=== PATIENT | female | born 1975 | race Caucasian/White ===

== ENCOUNTER → 2017-06-08 | Outpatient (CLI) | payer BC ==
[~2017-06-08] MED LIST: CLINDAMYCIN HC150 MG PO; LEVAQUIN750 MG PO; LINZESS PO; MEDROL4 MG/DOSE-; NEXIUM20 MG PO; ULTRAM50 MG PO; ZANTAC150 MG PO
[2017-06-08 11:00] LABS: BASOPHILS # (AUTO) 0.1 (0.0-0.1); BASOPHILS % 0.7 % (0.0-1.0); EOSINOPHILS # (AUTO) 0.1 (0.0-0.4); EOSINOPHILS % 1.9 % (0.0-6.0); HEMOGLOBIN 11.6 g/dL (12.0-16.0); LYMPHOCYTES # (AUTO) 1.8 (1.0-3.2); LYMPHOCYTES % 26.7 % (18.0-39.1); MEAN CORPUSCULAR HEMOGLOBIN 30.1 pg (28-32); MEAN CORPUSCULAR HGB CONC 33.1 g/dL (31-35); MEAN CORPUSCULAR VOLUME 90.9 fL (81-99); MONOCYTES # (AUTO) 0.5 (0.2-0.8); MONOCYTES % 7.3 % (4.4-11.3); NEUTROPHILS # (AUTO) 4.3 (2.1-6.9); NEUTROPHILS % 63.1 % (38.7-80.0); PLATELET COUNT 264 x10e3/uL (140-360); RED BLOOD COUNT 3.85 x10e6/uL (3.6-5.1); RED CELL DISTRIBUTION WIDTH 13.6 % (11.7-14.4)
[2017-06-08 11:22] LABS: ALANINE AMINOTRANSFERASE 31 IU/L (0-55); ALBUMIN 3.9 g/dL (3.5-5.0); ALBUMIN/GLOBULIN RATIO 1.1 (0.8-2.0); ALKALINE PHOSPHATASE 84 IU/L (40-150); ANION GAP 13.5 mmol/L (8-16); BLOOD UREA NITROGEN 11 mg/dL (7-26); BUN/CREATININE RATIO 16 (6-25); CALCIUM 9.4 mg/dL (8.4-10.2); CARBON DIOXIDE 23 mmol/L (22-29); CHLORIDE 104 mmol/L (98-107); CHOL/HDL RATIO 2.3 (3.0-3.6); CHOLESTEROL 203 MD/DL (0-199); CREATININE, SERUM 0.67 mg/dL (0.57-1.11); EST GLOMERULAR FILTRATION RATE > 60 ML/MIN (60-); GLUCOSE 91 mg/dL (74-118); HDL CHOLESTEROL 87 MG/DL (40-60); LDL CHOLESTEROL 106 MG/DL (60-130); POTASSIUM 3.5 mmol/L (3.5-5.1); SODIUM 137 mmol/L (136-145); TRIGLYCERIDES 52 MG/DL (0-149)
== END ==
LOC: LAB 09:17
PROVIDERS: ATTEND Internal Medicine
DX: R53.83 Other fatigue (principal); E55.9 Vitamin D deficiency, unspecified; E78.2 Mixed hyperlipidemia; E34.9 Endocrine disorder, unspecified; M60.9 Myositis, unspecified; R79.89 Other specified abnormal findings of blood chemistry
CPT/HCPCS: 36415; 80053; 80061; 82306; 82626; 82670; 84144; 84403; 84436; 84480; 85025

== ENCOUNTER 2017-11-24 15:13 | Emergency (ER) | payer BC ==
[~2017-11-24] VITALS: Ht 172.7 cm; Wt 93.0 kg
== END 2017-11-24 15:41 | disposition home or self-care (01) ==
LOC: ER 15:13
DX: R50.9 Fever, unspecified (principal); J02.0 Streptococcal pharyngitis; K21.9 Gastro-esophageal reflux disease without esophagitis
CPT/HCPCS: 99282

== ENCOUNTER → 2018-11-11 | Outpatient (CLI) | payer BC ==
--- NOTE | 2018-11-11 13:02 | Diagnostic Imaging Report ---
Left knee MRI without contrast. History: Knee pain. Decreased range of motion. Lateral pain. Pain worse with running Comparison: None. Technique: Multiplanar multi-sequence MRI of the knee without contrast. Findings: Medial compartment: Mid substance degeneration of the medial meniscus with mild fraying of the posterior horn. No meniscal tear is seen. The medial compartmental articular cartilage surfaces are slightly thinned with regions of fraying and fissuring. The medial collateral ligament complex is intact. Lateral compartment: No meniscal tear or cartilage abnormality. The LCL complex is normal. Intercondylar notch: The ACL and PCL are intact. Patellofemoral compartment: No chondromalacia or patellar dislocation. Extensor mechanism: The quadriceps and patellar tendons are normal. Other findings: There is a joint effusion and synovitis. There is no acute fracture, subluxation or avascular necrosis. IMPRESSION: Mid substance degeneration of the medial meniscus with mild fraying of the posterior horn. No meniscal tear is seen. 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 Signed by: Dr. Waqar Hogan M.D. on 11/11/2018 12:58 PM
== END ==
LOC: MRI 10:46
PROVIDERS: ATTEND Orthopaedic Surgery
DX: S83.282D Other tear of lateral meniscus, current injury, left knee, subsequent encounter (principal); M25.562 Pain in left knee
CPT/HCPCS: 81025

== ENCOUNTER → 2018-11-20 | Outpatient (CLI) | payer BC ==
[2018-11-20 09:10] LABS: BASOPHILS # (AUTO) 0.1 (0.0-0.1); EOSINOPHILS # (AUTO) 0.3 (0.0-0.4); HEMATOCRIT 35.1 % (34.2-44.1); HEMOGLOBIN 11.4 g/dL (12.0-16.0); LYMPHOCYTES % 32.8 % (18.0-39.1); MEAN CORPUSCULAR HEMOGLOBIN 30.1 pg (28-32); MEAN CORPUSCULAR HGB CONC 32.5 g/dL (31-35); MEAN CORPUSCULAR VOLUME 92.6 fL (81-99); MONOCYTES # (AUTO) 0.5 (0.2-0.8); MONOCYTES % 8.7 % (4.4-11.3); NEUTROPHILS # (AUTO) 3.3 (2.1-6.9); NEUTROPHILS % 53.3 % (38.7-80.0); PLATELET COUNT 268 x10e3/uL (140-360); RED BLOOD COUNT 3.79 x10e6/uL (3.6-5.1); RED CELL DISTRIBUTION WIDTH 13.1 % (11.7-14.4)
[2018-11-20 09:41] LABS: ALANINE AMINOTRANSFERASE 22 IU/L (0-55); ALBUMIN 3.6 g/dL (3.5-5.0); ALBUMIN/GLOBULIN RATIO 1.1 (0.8-2.0); ALKALINE PHOSPHATASE 81 IU/L (40-150); ANION GAP 12.1 mmol/L (8-16); BLOOD UREA NITROGEN 14 mg/dL (7-26); BUN/CREATININE RATIO 18 (6-25); CALCIUM 9.4 mg/dL (8.4-10.2); CARBON DIOXIDE 23 mmol/L (22-29); CHLORIDE 106 mmol/L (98-107); CHOL/HDL RATIO 2.9 (3.0-3.6); CHOLESTEROL 215 MD/DL (0-199); CREATININE, SERUM 0.78 mg/dL (0.57-1.11); EST GLOMERULAR FILTRATION RATE > 60 ML/MIN (60-); GLUCOSE 91 mg/dL (74-118); HDL CHOLESTEROL 73 MG/DL (40-60); LDL CHOLESTEROL 128 MG/DL (60-130); POTASSIUM 4.1 mmol/L (3.5-5.1); SODIUM 137 mmol/L (136-145); TRIGLYCERIDES 71 MG/DL (0-149)
== END ==
LOC: LAB 08:46
PROVIDERS: ATTEND Internal Medicine
DX: Z00.00 Encounter for general adult medical examination without abnormal findings (principal); R53.83 Other fatigue; E78.2 Mixed hyperlipidemia
CPT/HCPCS: 36415; 80053; 80061; 83036; 84436; 84479; 85025

== ENCOUNTER 2019-01-01 13:17 | Outpatient (RCR) | payer BC | END 2019-01-02 | LOC: PT 13:17 | PROVIDERS: ATTEND Orthopaedic Surgery | DX: M25.562 Pain in left knee (principal); M94.262 Chondromalacia, left knee; R26.2 Difficulty in walking, not elsewhere classified; M62.81 Muscle weakness (generalized) ==

== ENCOUNTER 2019-01-23 13:55 | Outpatient (RCR) | payer BC | END 2019-02-01 | LOC: PT 13:55 | PROVIDERS: ATTEND Orthopaedic Surgery | DX: M25.562 Pain in left knee (principal); R26.2 Difficulty in walking, not elsewhere classified; M62.81 Muscle weakness (generalized) ==

== ENCOUNTER 2019-02-08 13:40 | Emergency (ER) | payer BC ==
[~2019-02-08] VITALS: Ht 172.7 cm; Wt 93.0 kg
--- OUTSIDE RECORDS SUMMARY | 2019-02-08 13:42 | XMS REPORT ---
Author [facility] Address Unknown Phone Unavailable Care Team Providers Care Emergency Room Physician Name Role Phone Sanket HERBERT Unavailable Unavailable Problems This patient has no known problems. Allergies, Adverse Reactions, Alerts This patient has no known allergies or adverse reactions. Medications This patient has no known medications. Results Test Description Test Time Test Comments Text Results Atomic Results Result Comments MRI KNEE LEFT WO 2018-11-11 12:55:00 [place] [address] Patient Name: ALEX VEGA MR #: [id number] : 1975 Age/Sex: 43/F Req #: [id number] [facility] Physician: Ordered by: SANJUANA HERBERT DO Report #: [id number] Location: MRI Room/Bed: Procedure: MRI/MRI KNEE LEFT WO Exam Date: Exam Time: REPORT STATUS: Signed Left knee MRI without contrast. History: Knee pain. Decreased range of motion. Lateral pain. Pain worse with running Comparison: None. Technique: Multiplanar multi-sequence MRI of the knee without contrast. Findings: Medial compartment: Mid substance degeneration of the medial meniscus with mild fraying of the posterior horn. No meniscal tear is seen. The medial compartmental articular cartilage surfaces are slightly thinned with regions of fraying and fissuring. The medial collateral ligament complex is intact. Lateral compartment: No meniscal tear or cartilage abnormality. The LCL complex is normal. Intercondylar notch: The ACL and PCL are intact. Patellofemoral compartment: No chondromalacia or patellar dislocation. Extensor mechanism: The quadriceps and patellar tendons are normal. Other findings: There is a joint effusion and synovitis. There is no acute fracture, subluxation or avascular necrosis. IMPRESSION: Mid substance degeneration of the medial meniscus with mild fraying of the posterior horn. No meniscal tear is seen. 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 Signed by: Dr. Waqar Hogan M.D. on 11/11/2018 12:58 PM Dictated By: WAQAR HOGAN MD, MD [id number] Transcribed By: JD on 11/11/18 1258 COPY TO: SANJUANA HERBERT DO
[2019-02-08] MEDS ORDERED: KETOROLAC TROMETHAMINE 30 MG/ML VIAL IV ONE (14:00)
[2019-02-08 14:03] LABS: BASOPHILS % 0.5 % (0.0-1.0); EOSINOPHILS # (AUTO) 0.3 (0.0-0.4); HEMATOCRIT 33.8 % (34.2-44.1); HEMOGLOBIN 11.1 g/dL (12.0-16.0); LYMPHOCYTES # (AUTO) 2.5 (1.0-3.2); LYMPHOCYTES % 29.1 % (18.0-39.1); MEAN CORPUSCULAR HEMOGLOBIN 30.2 pg (28-32); MEAN CORPUSCULAR HGB CONC 32.8 g/dL (31-35); MEAN CORPUSCULAR VOLUME 92.1 fL (81-99); MONOCYTES # (AUTO) 0.8 (0.2-0.8); MONOCYTES % 9.5 % (4.4-11.3); NEUTROPHILS # (AUTO) 4.9 (2.1-6.9); NEUTROPHILS % 57.7 % (38.7-80.0); PLATELET COUNT 304 x10e3/uL (140-360); RED BLOOD COUNT 3.67 x10e6/uL (3.6-5.1); RED CELL DISTRIBUTION WIDTH 13.3 % (11.7-14.4)
[2019-02-08 14:13] LABS: CLARITY,URINE HAZY (CLEAR); COLOR,URINE YELLOW (YELLOW); LEUKOCYTE ESTERASE ,URINE NEGATIVE (NEGATIVE); NITRITE,URINE NEGATIVE (NEGATIVE)
[2019-02-08 14:14] LABS: INR 0.85; PROTHROMBIN TIME 12.1 seconds (11.9-14.5)
[2019-02-08 14:14] LABS: BILIRUBIN,URINE NEGATIVE (NEGATIVE); KETONES,URINE NEGATIVE (NEGATIVE); PROTEIN,URINE DIPSTICK TRACE (NEGATIVE); URINE UROBILINOGEN 0.2 mg/dL (0.2 - 1)
[2019-02-08 14:15] LABS: PARTIAL THROMBOPLASTIN TIME 25.8 seconds (23.8-35.5)
[2019-02-08 14:22] LABS: BACTERIA,URINE MODERATE /HPF; EPITHELIAL CELLS,URINE MODERATE /LPF
[2019-02-08 14:25] LABS: ALANINE AMINOTRANSFERASE 65 IU/L (0-55); ALBUMIN 3.6 g/dL (3.5-5.0); ALBUMIN/GLOBULIN RATIO 1.2 (0.8-2.0); ALKALINE PHOSPHATASE 93 IU/L (40-150); ANION GAP 12.3 mmol/L (8-16); BLOOD UREA NITROGEN 9 mg/dL (7-26); BUN/CREATININE RATIO 15 (6-25); CALCIUM 9.2 mg/dL (8.4-10.2); CARBON DIOXIDE 23 mmol/L (22-29); CHLORIDE 106 mmol/L (98-107); CREATINE KINASE 45 IU/L (29-168); CREATININE, SERUM 0.61 mg/dL (0.57-1.11); EST GLOMERULAR FILTRATION RATE > 60 ML/MIN (60-); GLUCOSE 94 mg/dL (74-118); LIPASE 73 U/L (8-78); MAGNESIUM 1.9 MG/DL (1.3-2.1); POTASSIUM 3.3 mmol/L (3.5-5.1); SODIUM 138 mmol/L (136-145)
[2019-02-08] MEDS ORDERED: DIAZEPAM INJ 5 MG/ML 2 ML IV ONE (14:30)
--- NOTE | 2019-02-08 14:41 | Diagnostic Imaging Report ---
EXAMINATION: CHEST 2 VIEWS INDICATION: Right chest wall pain. COMPARISON: None FINDINGS: TUBES and LINES: None. LUNGS: Lungs are not well inflated. There is no evidence of pneumonia or pulmonary edema. PLEURA: No pleural effusion or pneumothorax. HEART AND MEDIASTINUM: The cardiomediastinal silhouette is unremarkable. BONES AND SOFT TISSUES: No acute osseous lesion. Soft tissues are unremarkable. UPPER ABDOMEN: No free air under the diaphragm. IMPRESSION: No acute radiographic abnormality. Signed by: Dr. Nikolai Marina MD on 02/08/2019 2:38 PM
[2019-02-08] MEDS ORDERED: SODIUM CHLORIDE 0.9% 1000ML 1,000 ML IV SCH (15:00)
[2019-02-08 16:32] VITALS: BP 138/67
--- NOTE | 2019-02-08 17:00 | Diagnostic Imaging Report ---
EXAM: CT Chest WITH contrast- Pulmonary Embolism Protocol INDICATION: Chest pain, query pulmonary embolism. COMPARISON: Chest radiograph 02/08/2019. TECHNIQUE: Chest was scanned utilizing a multidetector helical scanner from the lung apex through the level of the diaphragm after administration of IV contrast. Thin section reconstructions were obtained with special concentration on the pulmonary arteries. Coronal and sagittal reformations were obtained. Pulmonary embolism protocol was performed. IV CONTRAST: 100 cc of Isovue 370 RADIATION DOSE: Total DLP: 598.2 mGy*cm Dose modulation, iterative reconstruction, and/or weight based adjustment of the mA/kV was utilized to reduce the radiation dose to as low as reasonably achievable. COMPLICATIONS: None FINDINGS: LINES/ TUBES: None. PULMONARY ARTERIES: No filling defect is identified within the pulmonary arteries to the segmental level. The subsegmental pulmonary arteries are not well opacified. Main pulmonary artery measures 2.2 cm in diameter. LUNGS AND AIRWAYS: The central airways are patent. No evidence of pneumonia or pulmonary edema. Minimal dependent atelectasis. There is a 4 mm solid nodule in the left lower lobe on series 3, image 76. PLEURA: The pleural spaces are clear. HEART AND MEDIASTINUM: The thyroid gland is normal. No mediastinal, hilar or axillary lymphadenopathy. The heart is normal in size.. There is no pericardial effusion. UPPER ABDOMEN: Limited contrast-enhanced views of the upper abdomen are unremarkable. BONES: The visualized bony thorax is within normal limits. SOFT TISSUES: Unremarkable. IMPRESSION: No evidence of pulmonary embolism to the level of the segmental pulmonary arteries. A 4 mm solid nodule in the left lower lobe is likely benign, and does not require follow-up in the absence of risk factor for malignancy. If the patient has a high risk for malignancy, an optional follow-up chest CT in 12 months may be considered. Signed by: Dr. Nikolai Marina MD on 02/08/2019 4:57 PM
[2019-02-08] MEDS ORDERED: IOPAMIDOL 370 MG/ML 200 ML INFUS..BTL INJ ONE (18:33)
[2019-02-08] MEDS ORDERED: SODIUM CHLORIDE 0.9% 50ML 50 ML ONE (18:33)
== END 2019-02-08 16:35 | disposition home or self-care (01) ==
LOC: ER 13:40
DX: S39.012A Strain of muscle, fascia and tendon of lower back, initial encounter (principal); M54.6 Pain in thoracic spine; R07.89 Other chest pain; K21.9 Gastro-esophageal reflux disease without esophagitis
CPT/HCPCS: 36415; 71046; 71260; 80053; 81001; 81025; 82550; 82553; 83690; 83735; 84484; 85025; 85379; 85610; 85730; 93005; 99284; J1885; J3360; J7030; Q9967

== ENCOUNTER 2019-11-23 19:18 | Emergency (ER) | payer BC ==
[~2019-11-23] VITALS: Ht 172.7 cm; Wt 93.0 kg
[2019-11-23] MEDS ORDERED: DIPHENHYDRAMINE HCL INJ 50 MG/ML VIAL IV ONE (19:45)
[2019-11-23] MEDS ORDERED: METOCLOPRAMIDE HCL 10 MG/2ML VIAL IV ONE (19:45)
[2019-11-23] MEDS ORDERED: METOCLOPRAMIDE HCL 10 MG/2ML VIAL ONE (19:53)
[2019-11-23] MEDS ORDERED: DIPHENHYDRAMINE HCL INJ 50 MG/ML VIAL ONE (19:53)
[2019-11-23] MEDS ORDERED: SODIUM CHLORIDE 0.9% 250ML 250 ML ONE (19:54)
--- NOTE | 2019-11-23 21:02 | Emergency Department Note ---
History of Present Illnes History of Present Illness Chief Complaint: Headache History of Present Illness This is a 44 year old female with hx of migraines who presents with headache X3 days. Initially abated on first day with sumatriptan, but JORDAN returned the next day and was out of sumatriptan rx. Has been taking OTC NSAIDs, Caffiene, APAP with no relief. Had Sumatriptan refilled today, but did not help. States similar symptoms in past from migraines associated with menstrual period. Started menstrual period 2 days ago. First migraine 8 years ago. Denies numbness, weakness, tingling, slurred speech, vision problems, dizziness, balance problems. JORDAN global. Severe on right frontal, and mild every where else. + photophobia/photophobia. No aura. Historian: Patient Arrival Mode: Car Customer Services Coordinator Required: No Onset (how long ago): day(s) Radiation: Reports non-radiation Severity: severe Onset quality: sudden Duration (how long): day(s) Timing of current episode: constant Progression: waxing and waning Chronicity: chronic (Intermittant) Context: Denies recent immobilization, Denies recent travel, Denies trauma/injury Relieving factors: other (dark room) Exacerbating factors: other (bright light) Treatments prior to arrival: NSAID, other (above) Past Medical/Family History Physician Review I have reviewed the patient's past medical and family history. Any updates have been documented here. Past Medical History Recent Fever: No Clinical Suspicion of Infectio: No New/Unexplained Change in Ment: No Past Medical History: GERD Other Medical History: MIRAINES Past Surgical History: Tubal Ligation Other Surgery: DETACHED RETINA Social History Smoking Cessation: Never Smoker Counseling Performed: No Alcohol Use: None Any Illegal Drug Use: No Physically hurt or threatened: No Other Last Tetanus: UTD Any Pre-Existing Lines (PICC,: No Review of Systems Review of Systems Constitutional: Reports no symptoms; Denies chills, Denies fever EENTM: Denies double vision Cardiovascular: Denies chest pain, Denies palpitations Respiratory: Denies cough, Denies dyspnea Gastrointestinal: Reports vomiting; Denies abdominal pain, Denies constipation, Denies nausea Genitourinary: Denies dysuria, Denies hematuria Musculoskeletal: Denies back pain, Denies muscle pain, Denies muscle stiffness Integumentary: Denies rash Neurological: Reports headache; Denies numbness, Denies paresthesia, Denies seizure, Denies tingling, Denies tremors, Denies weakness Psychological: Denies anxiety Hematological/Lymphatic: Denies swollen glands Physical Exam Related Data Allergies: Coded Allergies: Penicillins (Verified Allergy, Unknown, 01/23/16) amitriptyline (Verified Allergy, Unknown, 01/23/16) cephalexin (Verified Allergy, Unknown, 01/23/16) erythromycin base (Verified Allergy, Unknown, 01/23/16) Triage Vital Signs Vital Signs Date Time Temp Pulse Resp B/P (MAP) Pulse Ox O2 Delivery O2 Flow Rate FiO2 11/23/19 19:25 97.9 83 18 147/92 100 Room Air Physical Exam CONSTITUTIONAL Constitutional: Present well-developed, Present well-nourished HENT HENT: Present normocephalic, Present atraumatic, Present oropharynx clear/moist, Present nose normal EYES NECK Neck: Present ROM normal PULMONARY Pulmonary: Present effort normal, Present breath sounds normal CARDIOVASCULAR Cardiovascular: Present regular rhythm, Present heart sounds normal, Present capillary refill normal, Present normal rate GASTROINTESTINAL Abdominal: Present soft, Present nontender, Present bowel sounds normal GENITOURINARY SKIN Skin: Present warm, Present dry; Absent rash MUSCULOSKELETAL Musculoskeletal: Present ROM normal NEUROLOGICAL Normal [id number]. Normal rapid alternating movement. +2 and equal bilateral DTR's of patella and biceps. gait WNL. Neurological: Present alert, Present oriented x 3, Present no gross motor or sensory deficits PSYCHOLOGICAL Psychological: Present mood/affect normal, Present judgement normal Assessment & Plan Medical Decision Making MDM Differential includes, but not limited to migraine JORDAN, tension JORDAN, Cluster JORDAN, Cough JORDAN, Cold stimulus JORDAN, Hypnic headache, tumor, glaucoma, meningitis, carbon monoxide and other toxic exposures, SAH. Patient with typical migraine headache triggered by menstrual cycle that was resolved with Reglan and Benadryl. Spoke with patient about CT and patient declined. Reassessment Reassessment time: 20:53 Reassessment JORDAN resolved after IV benadryl and reglan Assessment & Plan Final Impression: (1) Migraine headache Depart Disposition: HOME, SELF-CARE Last Vital Signs Date Time Temp Pulse Resp B/P (MAP) Pulse Ox O2 Delivery O2 Flow Rate FiO2 11/23/19 20:34 84 18 134/83 99 Room Air 11/23/19 19:25 97.9 Home Meds Reported Medications Ranitidine Hcl (ZANTAC) 150 Mg Tablet, 150 MG PO THERAPEUTICALLY SUBSTITUTED WITH PEPCID 20MG 08/26/16 [Linzess] No Conflict Check, 1 TAB PO DAILY 08/22/16 Esomeprazole Magnesium (NEXIUM) 20 Mg Capsule.dr, 20 MG PO DAILY PROTONIX THERAPEUTIC INTERCHANGE PER [facility] 01/20/15 Medications in the ED Metoclopramide HCl 10 mg ONCE ONCE IV Last administered on 11/23/19at 19:50; Admin Dose 10 MG; Start 11/23/19 at 19:45; Stop 11/23/19 at 19:46; Status DC Diphenhydramine HCl 25 mg NOW ONCE IV Last administered on 11/23/19at 19:50; Admin Dose 25 MG; Start 11/23/19 at 19:45; Stop 11/23/19 at 19:46; Status DC Metoclopramide HCl 10 mg STK-MED ONCE .ROUTE ; Start 11/23/19 at 19:53; Stop 11/23/19 at 19:49; Status DC Diphenhydramine HCl 50 mg STK-MED ONCE .ROUTE ; Start 11/23/19 at 19:53; Stop 11/23/19 at 19:49; Status DC Sodium Chloride 250 ml @ ud STK-MED ONCE .ROUTE ; Start 11/23/19 at 19:54; Stop 11/23/19 at 19:49; Status DC YAHAIRA JACKSON MD Nov 23, 2019 21:02
== END 2019-11-23 20:58 | disposition home or self-care (01) ==
LOC: FSED 19:40
DX: G43.909 Migraine, unspecified, not intractable, without status migrainosus (principal); K21.9 Gastro-esophageal reflux disease without esophagitis
CPT/HCPCS: 99283; J1200; J2765; J7050

== ENCOUNTER 2020-02-21 15:15 | Emergency (ER) | payer BC, OTHER ==
[~2020-02-21] VITALS: Ht 170.2 cm; Wt 97.5 kg
[~2020-02-21 15:15] MED LIST changes: +METHYLPREDNISOLONE SOD SUCC 125 MG/2ML VIAL ONE
[2020-02-21] MEDS ORDERED: SODIUM CHLORIDE 0.9% 1000ML 1,000 ML IV STA (15:33)
[2020-02-21] MEDS ORDERED: KETOROLAC TROMETHAMINE 30 MG/ML VIAL IV STA (15:33)
[2020-02-21] MEDS ORDERED: ONDANSETRON HCL INJ 2MG/ML 2ML 2 MG/ML VIAL IV STA (15:33)
[2020-02-21] MEDS ORDERED: SODIUM CHLORIDE FLUSH 10 ML SYR INJ PRN (15:45)
[2020-02-21] MEDS ORDERED: DONNATAL/LIDOCAINE/MAALOX 30 ML SUSP PO SCH (15:45)
[2020-02-21] MEDS ORDERED: LIDOCAINE VISC 2% SOLN 15 ML UDC ONE (15:47)
[2020-02-21] MEDS ORDERED: BELLADONNA ALK/PHENOBARBITAL 5 ML UDC ONE (15:47)
[2020-02-21] MEDS ORDERED: MAGNESIUM/ALUMINUM/SIMETHICONE 30 ML UDC ONE (15:48)
[2020-02-21] MEDS ORDERED: SODIUM CHLORIDE 0.9% 50ML 50 ML ONE (16:03)
[2020-02-21] MEDS ORDERED: IOPAMIDOL 370 MG/ML 200 ML INFUS..BTL INJ ONE (16:03)
[2020-02-21] MEDS ORDERED: POTASSIUM CHLORIDE 10MEQ/100ML 100 ML IV ONE (16:30)
[2020-02-21] MEDS ORDERED: POTASSIUM CHLORIDE 10MEQ/100ML 100 ML ONE (16:57)
[2020-02-21] MEDS ORDERED: SODIUM CHLORIDE 0.9% 1000ML 1,000 ML ONE (16:58)
[2020-02-21] MEDS ORDERED: MAGNESIUM SULF 1GRAM/DEXTROSE 100 ML IV ONE ×2 (16:58→17:00)
[2020-02-21] MEDS ORDERED: MAGNESIUM SULFATE 2GM/50ML 50 ML IV ONE (17:00)
[2020-02-21] MEDS ORDERED: METOCLOPRAMIDE HCL 10 MG/2ML VIAL IV ONE (17:30)
[2020-02-21] MEDS ORDERED: DIPHENHYDRAMINE HCL INJ 50 MG/ML VIAL IV ONE (17:30)
[2020-02-21] MEDS ORDERED: METOCLOPRAMIDE HCL 10 MG/2ML VIAL ONE (17:38)
[2020-02-21] MEDS ORDERED: DIPHENHYDRAMINE HCL INJ 50 MG/ML VIAL ONE (17:39)
[2020-02-21] MEDS ORDERED: METHYLPREDNISOLONE SOD SUCC 125 MG/2ML VIAL IV ONE (20:00)
[2020-02-21] MEDS ORDERED: METOCLOPRAMIDE10 MG PO (21:32)
[2020-02-21] MEDS ORDERED: ONDANSETRON ODT8 MG PO (21:32)
[2020-02-21] MEDS ORDERED: PREDNISONE20 MG PO (21:32)
[2020-02-21 21:39] VITALS: BP 121/76
== END 2020-02-21 21:44 | disposition home or self-care (01) ==
LOC: FSED 15:26
DX: R10.13 Epigastric pain (principal); K20.90 Esophagitis, unspecified without bleeding; K29.00 Acute gastritis without bleeding; E87.6 Hypokalemia; E83.42 Hypomagnesemia; E86.0 Dehydration; R91.8 Other nonspecific abnormal finding of lung field
CPT/HCPCS: 71260; 74177; 80048; 81003; 81025; 85025; 93005; 96374; 96375; 96376; 99284; J1200; J1885; J2405; J2765; J2930; J3475; J3480; J7030; Q9967

== ENCOUNTER → 2020-05-19 | Outpatient (CLI) | payer OTHER ==
[~2020-05-19] MED LIST changes: -METHYLPREDNISOLONE SOD SUCC 125 MG/2ML VIAL ONE; +METOCLOPRAMIDE10 MG PO; +ONDANSETRON ODT8 MG PO; +PREDNISONE20 MG PO
== END ==
LOC: MAMMO 11:33
PROVIDERS: ATTEND Internal Medicine
DX: N64.53 Retraction of nipple (principal)
CPT/HCPCS: 77066

== ENCOUNTER → 2020-05-21 | Outpatient (CLI) | payer OTHER | LOC: US 10:24 | PROVIDERS: ATTEND Internal Medicine | DX: N63.20 Unspecified lump in the left breast, unspecified quadrant (principal) | CPT/HCPCS: 88305 ==

== ENCOUNTER 2020-07-18 11:43 | Emergency (ER) | payer OTHER ==
[~2020-07-18] VITALS: Ht 170.2 cm; Wt 95.3 kg
[2020-07-18] MEDS ORDERED: TOPAMAX100 MG PO (11:55)
== END 2020-07-18 13:36 | disposition home or self-care (01) ==
LOC: FSED 11:58
DX: R53.81 Other malaise (principal); D84.9 Immunodeficiency, unspecified; C50.919 Malignant neoplasm of unspecified site of unspecified female breast; R05 Cough; Z79.899 Other long term (current) drug therapy; K21.9 Gastro-esophageal reflux disease without esophagitis; Z20.822 Contact with and (suspected) exposure to COVID-19
CPT/HCPCS: 83518; 87400; 99282; U0002

== ENCOUNTER 2020-07-19 16:56 | Emergency (ER) | payer OTHER ==
[~2020-07-19] VITALS: Ht 175.3 cm; Wt 95.3 kg
[~2020-07-19 16:56] MED LIST changes: +TOPAMAX100 MG PO
== END 2020-07-19 18:43 | disposition home or self-care (01) ==
LOC: FSED 17:15
DX: R00.2 Palpitations (principal); K21.9 Gastro-esophageal reflux disease without esophagitis; Z79.899 Other long term (current) drug therapy; R94.31 Abnormal electrocardiogram [ECG] [EKG]; Z85.3 Personal history of malignant neoplasm of breast
CPT/HCPCS: 71045; 93005; 99283

== ENCOUNTER → 2020-08-12 | Outpatient (CLI) | payer OTHER ==
[~2020-08-12] MED LIST changes: +CLINDAMYCIN 600 MG/50 ML IV ONE; +FENTANYL CITRATE/PF 100MCG/2 ML INJ ONE; +GENTAMICIN 80MG/NS IV ONE; +LIDOCAINE 2% /EPINEPHRINE 20 ML SDV INJ ONE; +LIDOCAINE HCL 1% LOCAL INJ 20 ML VIAL ONE; +MIDAZOLAM HCL 2 MG/2 ML VIAL ONE; +SODIUM CHLORIDE 0.9% 100 ML ONE; +SODIUM CHLORIDE 0.9% 500ML 500 ML ONE
[2020-08-12 10:15] LABS: BASOPHILS # (AUTO) 0.2 (0.0-0.1); BASOPHILS % 1.7 % (0.0-1.0); EOSINOPHILS # (AUTO) 0.3 (0.0-0.4); EOSINOPHILS % 3.6 % (0.0-6.0); HEMATOCRIT 32.5 % (34.2-44.1); HEMOGLOBIN 10.7 g/dL (12.0-16.0); LYMPHOCYTES # (AUTO) 1.7 (1.0-3.2); MEAN CORPUSCULAR HEMOGLOBIN 32.1 pg (28-32); MEAN CORPUSCULAR HGB CONC 32.9 g/dL (31-35); MEAN CORPUSCULAR VOLUME 97.6 fL (81-99); MONOCYTES # (AUTO) 1.9 (0.2-0.8); MONOCYTES % 21.2 % (4.4-11.3); NEUTROPHILS # (AUTO) 3.8 (2.1-6.9); NEUTROPHILS % 43.5 % (38.7-80.0); PLATELET COUNT 295 x10e3/uL (140-360); RED BLOOD COUNT 3.33 x10e6/uL (3.6-5.1); RED CELL DISTRIBUTION WIDTH 17.2 % (11.7-14.4)
[2020-08-12 10:39] LABS: INR 0.75; PROTHROMBIN TIME 11.1 seconds (11.9-14.5)
[2020-08-12 20:19] LABS: BAND NEUTROPHILS % (MANUAL) 2 %; EOSINOPHILS % (MANUAL) 8 % (0-7); LYMPHOCYTES % (MANUAL) 14 % (19-48); METAMYELOCYTES % (MANUAL) 4 % (0-0); MONOCYTES % (MANUAL) 27 % (3.4-9.0); MYELOCYTES % (MANUAL) 3 % (0-0); NEUTROPHILS % (MANUAL) 39 % (40-74)
[2020-08-12 20:20] LABS: PLATELET ESTIMATE ADEQUATE; POLYCHROMASIA FEW
[2020-08-12 20:21] LABS: ANISOCYTOSIS SLIGHT; PLATELET MORPHOLOGY COMMENT NORMAL
== END ==
LOC: DX 10:01
PROVIDERS: ATTEND Internal Medicine
DX: C50.812 Malignant neoplasm of overlapping sites of left female breast (principal); Z17.0 Estrogen receptor positive status [ER+]
CPT/HCPCS: 36415; 36561; 76937; 85025; 85610; 87070; J1580; J2001 ×2; J2250; J3010; J7040; J7050; 36590; 99152; 99153; C1769

== ENCOUNTER 2021-01-24 20:07 | Emergency (ER) | payer OTHER ==
[~2021-01-24] VITALS: Ht 172.7 cm; Wt 102.1 kg
[~2021-01-24 20:07] MED LIST changes: -CLINDAMYCIN 600 MG/50 ML IV ONE; -FENTANYL CITRATE/PF 100MCG/2 ML INJ ONE; -GENTAMICIN 80MG/NS IV ONE; -LIDOCAINE 2% /EPINEPHRINE 20 ML SDV INJ ONE; -LIDOCAINE HCL 1% LOCAL INJ 20 ML VIAL ONE; -MIDAZOLAM HCL 2 MG/2 ML VIAL ONE; -SODIUM CHLORIDE 0.9% 100 ML ONE; -SODIUM CHLORIDE 0.9% 500ML 500 ML ONE
[2021-01-24] MEDS ORDERED: ONDANSETRON HCL INJ 2MG/ML 2ML 2 MG/ML VIAL IV STA (20:28)
[2021-01-24] MEDS ORDERED: Morphine 4mg Syringe 4 MG/ML INJ IV ONE (20:30)
[2021-01-24] MEDS ORDERED: ONDANSETRON HCL INJ 2MG/ML 2ML 2 MG/ML VIAL ONE (20:49)
[2021-01-24] MEDS ORDERED: Morphine 4mg Syringe 4 MG/ML INJ ONE (20:50)
[2021-01-24] MEDS ORDERED: ULTRAM50 MG PO (22:31)
[2021-01-24 22:35] VITALS: BP 136/74
== END 2021-01-24 22:35 | disposition home or self-care (01) ==
LOC: FSED 20:30
DX: L76.34 Postprocedural seroma of skin and subcutaneous tissue following other procedure (principal); R07.89 Other chest pain; R94.31 Abnormal electrocardiogram [ECG] [EKG]; K21.9 Gastro-esophageal reflux disease without esophagitis; Z85.3 Personal history of malignant neoplasm of breast
CPT/HCPCS: 71260; 80053; 84484; 93005; 96374; 96376; 99283; J2270; J2405

== ENCOUNTER 2021-04-17 18:29 | Emergency (ER) | payer BC, OTHER ==
[~2021-04-17] VITALS: Ht 170.2 cm; Wt 104.3 kg
[2021-04-17] MEDS ORDERED: SODIUM CHLORIDE 0.9% 1000ML 1,000 ML IV STA (18:33)
[2021-04-17] MEDS ORDERED: SODIUM CHLORIDE 0.9% 1000ML 1,000 ML ONE (19:28)
[2021-04-17 20:10] VITALS: BP 123/80
== END 2021-04-17 20:10 | disposition home or self-care (01) ==
LOC: FSED 18:35
DX: R00.2 Palpitations (principal); E86.0 Dehydration; R00.0 Tachycardia, unspecified; K21.9 Gastro-esophageal reflux disease without esophagitis; Z20.822 Contact with and (suspected) exposure to COVID-19; R94.31 Abnormal electrocardiogram [ECG] [EKG]; Z85.3 Personal history of malignant neoplasm of breast
CPT/HCPCS: 80053; 81003; 83880; 84484; 85025; 85379; 87400; 93005; 99283; J7030; U0002

== ENCOUNTER 2021-10-14 00:37 | Emergency (ER) | payer BC ==
[~2021-10-14] VITALS: Ht 170.2 cm; Wt 104.3 kg
== END 2021-10-14 04:07 | disposition home or self-care (01) ==
LOC: FSED 00:40
DX: R07.89 Other chest pain (principal); R00.2 Palpitations; K21.9 Gastro-esophageal reflux disease without esophagitis; Z85.3 Personal history of malignant neoplasm of breast
CPT/HCPCS: 71260; 80053; 83880; 84484; 85025; 93005; 93971; 99284

== ENCOUNTER 2022-05-24 08:32 | Emergency (ER) | payer BC ==
[~2022-05-24] VITALS: Ht 170.2 cm; Wt 104.3 kg
[2022-05-24] MEDS ORDERED: KETOROLAC TROMETHAMINE 60 MG/2 ML VIAL IM ONE (08:45)
[2022-05-24] MEDS ORDERED: ULTRAM 50MG50 MG PO (10:42)
== END 2022-05-24 10:59 | disposition home or self-care (01) ==
LOC: ER 08:36
DX: S20.211A Contusion of right front wall of thorax, initial encounter (principal); W01.0XXA Fall on same level from slipping, tripping and stumbling without subsequent striking against object, initial encounter; Y93.01 Activity, walking, marching and hiking; Y92.89 Other specified places as the place of occurrence of the external cause; K21.9 Gastro-esophageal reflux disease without esophagitis; Z85.3 Personal history of malignant neoplasm of breast
CPT/HCPCS: 71101; 99283; J1885

== ENCOUNTER → 2022-07-01 | Day surgery (SDC) | payer BC ==
[2022-06-27 09:17] LABS: BASOPHILS # (AUTO) 0.1 (0.0-0.1); BASOPHILS % 1.2 % (0.0-1.0); EOSINOPHILS # (AUTO) 0.1 (0.0-0.4); HEMOGLOBIN 12.1 g/dL (12.0-16.0); LYMPHOCYTES # (AUTO) 1.6 (1.0-3.2); MEAN CORPUSCULAR HEMOGLOBIN 33.5 pg (28-32); MEAN CORPUSCULAR HGB CONC 32.7 g/dL (31-35); MEAN CORPUSCULAR VOLUME 102.5 fL (81-99); MONOCYTES # (AUTO) 0.6 (0.2-0.8); MONOCYTES % 8.3 % (4.4-11.3); NEUTROPHILS # (AUTO) 4.4 (2.1-6.9); NEUTROPHILS % 64.2 % (38.7-80.0); PLATELET COUNT 269 x10e3/uL (140-360); RED BLOOD COUNT 3.61 x10e6/uL (3.6-5.1); RED CELL DISTRIBUTION WIDTH 12.4 % (11.7-14.4)
[~2022-07-01] MED LIST changes: +ARIMIDEX1 MG PO; +CALCIUM500 MG PO; +FENTANYL CITRATE/PF 100MCG/2 ML INJ ONE; +FIORICET 50-301 EACH PO; +GABAPENTIN300 MG PO; +HYOSCYAMINE SULFATE 0.5 MG/ML INJ ONE; +IMITREX100 MG PO; +LACTATED RINGER'S 1,000 ML BAG IV ONE; +METOCLOPRAMIDE HCL 10 MG/2ML VIAL ONE; +MIDAZOLAM HCL 2 MG/2 ML VIAL ONE; +OMEPRAZOLE40 MG PO; +ONDANSETRON HCL INJ 2MG/ML 2ML 2 MG/ML VIAL ONE; +POVIDONE IODINE 0.05% 0.05 % ML PO ONE; +PROPOFOL IV EMULSION 10 MG/ML 20 ML VIAL ONE; +ULTRAM 50MG50 MG PO; +VERZENIO150 MG PO; +ZINC PO; +[UNRECOGNIZED DRUG - OTHER] PO; +[UNRECOGNIZED DRUG - OTHER] PO
[2022-07-01 09:15] VITALS: BP 125/74
[2022-07-01 10:42] LABS: WBC,FECAL (FECAL LACTOFERRIN) NEGATIVE (NEGATIVE)
== END | disposition home or self-care (01) ==
LOC: OR 06:58
PROVIDERS: ATTEND Internal Medicine Gastroenterology
DX: K52.9 Noninfective gastroenteritis and colitis, unspecified (principal); K63.5 Polyp of colon; K31.7 Polyp of stomach and duodenum; K29.70 Gastritis, unspecified, without bleeding; K20.90 Esophagitis, unspecified without bleeding; K21.9 Gastro-esophageal reflux disease without esophagitis; K59.00 Constipation, unspecified; K63.89 Other specified diseases of intestine; K64.8 Other hemorrhoids; D64.9 Anemia, unspecified; Z01.812 Encounter for preprocedural laboratory examination; Z79.899 Other long term (current) drug therapy
CPT/HCPCS: 36415; 43239; 43251; 43450; 45380; 81025; 83630; 83993; 85025; 87045; 87177; 87324; 87328; 87449; C9113; J1980; J2250; J2405; J2704; J2765; J3010; J7121

== ENCOUNTER 2023-01-24 10:50 | Outpatient (RCR) | payer BC ==
[~2023-01-24 10:50] MED LIST changes: -FENTANYL CITRATE/PF 100MCG/2 ML INJ ONE; -HYOSCYAMINE SULFATE 0.5 MG/ML INJ ONE; -LACTATED RINGER'S 1,000 ML BAG IV ONE; -METOCLOPRAMIDE HCL 10 MG/2ML VIAL ONE; -MIDAZOLAM HCL 2 MG/2 ML VIAL ONE; -ONDANSETRON HCL INJ 2MG/ML 2ML 2 MG/ML VIAL ONE; -POVIDONE IODINE 0.05% 0.05 % ML PO ONE; -PROPOFOL IV EMULSION 10 MG/ML 20 ML VIAL ONE
== END 2023-02-01 ==
LOC: PT 10:50
PROVIDERS: ATTEND Podiatrist Foot & Ankle Surgery
DX: M72.2 Plantar fascial fibromatosis (principal); M62.81 Muscle weakness (generalized); R26.89 Other abnormalities of gait and mobility; M79.671 Pain in right foot

== ENCOUNTER 2024-04-26 08:00 | Emergency (ER) | payer BC ==
[~2024-04-26] VITALS: Ht 170.2 cm; Wt 98.5 kg
[2024-04-26 08:03] VITALS: PULSE 93; RESP 16; TEMP 98.5; O2SAT 100
[2024-04-26] MEDS ORDERED: DEXAMETHASONE SOD PHOS INJ 4 MG/ML SDV ONE (08:42)
[2024-04-26] MEDS ORDERED: NASACORT16.9 ML (08:44)
[2024-04-26] MEDS ORDERED: THERAFLU NIGHT1 EAC5 PO (08:44)
[2024-04-26] MEDS ORDERED: THERAFLU COLD1 EAC4 PO (08:44)
[2024-04-26] MEDS ORDERED: LEVOFLOXACIN250 MG PO (08:44)
[2024-04-26] MEDS: IBUPROFEN 200 MG TAB PO ONE (08:47)
[2024-04-26] MEDS: DEXAMETHASONE SOD PHOS INJ 4 MG/ML SDV IM ONE (08:47)
[2024-04-26] MEDS: ACETAMINOPHEN 325 MG TAB PO ONE (08:47)
[2024-04-26] MEDS ORDERED: THERAFLU SVR C1 EACH PO (08:51)
== END 2024-04-26 09:00 | disposition home or self-care (01) ==
LOC: FSED 08:03
DX: R05.9 Cough, unspecified (principal); J40 Bronchitis, not specified as acute or chronic; J06.9 Acute upper respiratory infection, unspecified; M79.10 Myalgia, unspecified site; R53.81 Other malaise; R53.83 Other fatigue; Z11.52 Encounter for screening for COVID-19
CPT/HCPCS: 0223U; 83518; 87400; 99284; J1100